=== PATIENT | female | born 1960 | race African-American/Black ===

== ENCOUNTER 2016-08-27 06:55 | Emergency (ER) | payer BC ==
[~2016-08-27] VITALS: Ht 162.6 cm; Wt 137.4 kg
[2016-08-27 07:59] LABS: HEMATOCRIT 35.8 % (36.0-46.0); MCH 28.5 PG (29.0-34.0); MCHC 33.2 G/DL (30.0-36.0); MCV 85.6 FL (83-99); MEAN PLAT.VOLUME 9.2 uM^3 (9.5-12.4); PLATELET COUNT 282 K/uL (156-360); RBC DIS.WIDTH-CV 13.6 % (11.8-14.6); RED BLOOD COUNT 4.18 M/uL (3.80-5.20); WHITE BLOOD COUNT 6.4 K/uL (4.1-10.2)
[2016-08-27 08:16] LABS: ANION GAP 6 MEQ/L (2-14); CHLORIDE 103 MEQ/L (99-109); POTASSIUM 3.6 MEQ/L (3.7-5.4); SAMPLE HEMOLYSIS CHECK 0; SAMPLE ICTERIC CHECK 0; SAMPLE LIPEMIA CHECK 0; SODIUM 136 MEQ/L (136-147)
[2016-08-27 08:21] LABS: GFR ESTIMATE (CALCULATED) > 59 mL/min/; GLUCOSE 141 mg/dL (70-99); UREA NITROGEN (BUN) 13 mg/dL (9-23)
[2016-08-27] MEDS ORDERED: AMLODIPINE BESYL5 MG PO (09:54)
[2016-08-27] MEDS ORDERED: SPIRONOLACTONE25 MG PO (09:55)
[2016-08-27] MEDS ORDERED: REGLAN5 MG PO (14:04)
[2016-08-27] MEDS ORDERED: MOTRIN600 MG PO (14:04)
[2016-08-27 14:38] VITALS: BP 154/85
== END 2016-08-27 14:54 | disposition home or self-care (01) ==
LOC: EME 06:55
PROVIDERS: Emergency Medicine
PROC: 00JU3ZZ Inspection of Spinal Canal, Percutaneous Approach (ICD-10-PCS; principal; 2016-08-27)
DX: G43.109 Migraine with aura, not intractable, without status migrainosus (principal); I10 Essential (primary) hypertension; J32.0 Chronic maxillary sinusitis
CPT/HCPCS: 70450; 70496; 77003; 80048; 85027; 99281; 99284; J1200; J2765; J7030